=== PATIENT | female | born 1970 | race Caucasian/White ===

== ENCOUNTER 2016-11-24 12:40 | Emergency (ER) | payer SELFPAY ==
[~2016-11-24] VITALS: Ht 162.6 cm; Wt 68.0 kg
[2016-11-24 12:42] VITALS: BP 120/65; PULSE 109; RESP 20; TEMP 98.8; O2SAT 100
--- NOTE | 2016-11-24 12:58 | PD ---
HPI Chief Complaint: Abnormal Results Time Seen by Provider: 12:57 Travel History International Travel<30 days: No Contact w/Intl Traveler<30days: No Traveled to known affect area: No History of Present Illness HPI 46-year-old female with history of bipolar disorder, presents to the emergency department for evaluation of possible low hemoglobin. Patient states she is followed by Dr. Maurice Salas. She states she has been seeing him for intermittent episodes of dizziness ongoing for months, and scattered scabbed lesions on her scalp and extremities. He did lab work and called her to inform her that her hemoglobin was low and to come to the emergency department for reevaluation of this. Currently patient is having no symptoms. Denies any chest pain or tightness. No difficulty breathing. She is not lightheaded or having sensations of passing out. She has been having normal bowel movements. No black tarry stools.. She has no other symptoms to report. PFSH Past Medical History Bipolar Disorder: Yes ?: Not LMP: tubal Social History Alcohol Use: No Tobacco Use: Yes Substance Use: No Allergies-Medications (Allergen,Severity, Reaction): Coded Allergies: No Known Allergies (Unverified , 11/24/16) Reported Meds & Prescriptions Reported Meds & Active Scripts Active Reported Seroquel (Quetiapine Fumarate) 100 Mg Tab 100 Mg PO HS Wellbutrin SR 12 HR (Bupropion HCl) 150 Mg Tab 150 Mg PO DAILY Review of Systems Except as stated in HPI: all other systems reviewed are Neg Physical Exam Narrative GENERAL: Well-nourished female patient, ambulatory and in no acute distress SKIN: Focused skin assessment warm/dry. Scattered plaque like lesions on the extremities and scalp, varying in size. HEAD: Atraumatic. Normocephalic. EYES: Pupils equal and round. No scleral icterus. No injection or drainage. ENT: No nasal bleeding or discharge. Mucous membranes pink and moist. NECK: Trachea midline. No JVD. CARDIOVASCULAR: Tachycardic rate and rhythm. No murmur appreciated. RESPIRATORY: No accessory muscle use. Clear to auscultation. Breath sounds equal bilaterally. GASTROINTESTINAL: Abdomen soft, non-tender, nondistended. Hepatic and splenic margins not palpable. MUSCULOSKELETAL: No obvious deformities. No clubbing. No cyanosis. No edema. NEUROLOGICAL: Awake and alert. No obvious cranial nerve deficits. Motor grossly within normal limits. Normal speech. PSYCHIATRIC: Appropriate mood and affect; insight and judgment normal. Data Data Last Documented VS Vital Signs Date Time Temp Pulse Resp B/P Pulse Ox O2 Delivery O2 Flow Rate FiO2 11/24/16 14:49 99 18 120/75 99 11/24/16 13:36 Room Air 11/24/16 12:42 98.8 Orders Basic Metabolic Panel (Bmp) (11/24/16 12:56) Complete Blood Count With Diff (11/24/16 12:56) Prothrombin Time / Inr (Pt) (11/24/16 12:56) Act Partial Throm Time (Ptt) (11/24/16 12:56) Urinalysis - C+S If Indicated (11/24/16 12:56) Type And Screen (11/24/16 12:56) Ecg Monitoring (11/24/16 12:56) Iv Access Insert/Monitor (11/24/16 12:56) Oximetry (11/24/16 12:56) Orthostatic Vital Signs (11/24/16 14:03) Labs Laboratory Tests Test 11/24/16 13:31 White Blood Count 6.4 TH/MM3 Red Blood Count 4.65 MIL/MM3 Hemoglobin 8.6 GM/DL Hematocrit 28.4 % Mean Corpuscular Volume 61.0 FL Mean Corpuscular Hemoglobin 18.4 PG Mean Corpuscular Hemoglobin 30.2 % Concent Red Cell Distribution Width 18.2 % Platelet Count 259 TH/MM3 Mean Platelet Volume 8.7 FL Neutrophils (%) (Auto) 59.6 % Lymphocytes (%) (Auto) 24.8 % Monocytes (%) (Auto) 12.7 % Eosinophils (%) (Auto) 1.4 % Basophils (%) (Auto) 1.5 % Neutrophils # (Auto) 3.8 TH/MM3 Lymphocytes # (Auto) 1.6 TH/MM3 Monocytes # (Auto) 0.8 TH/MM3 Eosinophils # (Auto) 0.1 TH/MM3 Basophils # (Auto) 0.1 TH/MM3 CBC Comment DIFF FINAL Differential Comment Prothrombin Time 10.6 SEC Prothromb Time International 1.0 RATIO Ratio Activated Partial 25.8 SEC Thromboplast Time Urine Color YELLOW Urine Turbidity HAZY Urine pH 6.0 Urine Specific [place] 1.027 Urine Protein TRACE mg/dL Urine Glucose (UA) NEG mg/dL Urine Ketones NEG mg/dL Urine Occult Blood NEG Urine Nitrite NEG Urine Bilirubin NEG Urine Urobilinogen 2.0 MG/DL Urine Leukocyte Esterase TRACE Urine RBC LESS THAN 1 /hpf Urine WBC LESS THAN 1 /hpf Urine Squamous Epithelial 7 /hpf Cells Urine Transitional Epithelial <1 /hpf Cells Urine Bacteria RARE /hpf Urine Mucus FEW /lpf Microscopic Urinalysis Comment CULT NOT INDICATED Sodium Level 138 MEQ/L Potassium Level 3.7 MEQ/L Chloride Level 106 MEQ/L Carbon Dioxide Level 25.4 MEQ/L Anion Gap 7 MEQ/L Blood Urea Nitrogen 10 MG/DL Creatinine 0.75 MG/DL Estimat Glomerular Filtration 83 ML/MIN Rate Random Glucose 92 MG/DL Calcium Level 8.5 MG/DL Blood Type AB POSITIVE Antibody Screen NEGATIVE Blood Bank Comment [facility] Medical Decision Making Medical Screen Exam Complete: Yes Emergency Medical Condition: Yes Medical Record Reviewed: Yes Differential Diagnosis Anemia versus symptomatic anemia versus electrolyte abnormality versus vertigo versus syncope versus near-syncope Narrative Course 46-year-old female presents to department for evaluation. Patient appears without distress. Vital signs are stable. Laboratory Tests Test 11/24/16 13:31 White Blood Count 6.4 TH/MM3 Red Blood Count 4.65 MIL/MM3 Hemoglobin 8.6 GM/DL Hematocrit 28.4 % Mean Corpuscular Volume 61.0 FL Mean Corpuscular Hemoglobin 18.4 PG Mean Corpuscular Hemoglobin 30.2 % Concent Red Cell Distribution Width 18.2 % Platelet Count 259 TH/MM3 Mean Platelet Volume 8.7 FL Neutrophils (%) (Auto) 59.6 % Lymphocytes (%) (Auto) 24.8 % Monocytes (%) (Auto) 12.7 % Eosinophils (%) (Auto) 1.4 % Basophils (%) (Auto) 1.5 % Neutrophils # (Auto) 3.8 TH/MM3 Lymphocytes # (Auto) 1.6 TH/MM3 Monocytes # (Auto) 0.8 TH/MM3 Eosinophils # (Auto) 0.1 TH/MM3 Basophils # (Auto) 0.1 TH/MM3 CBC Comment DIFF FINAL Differential Comment Prothrombin Time 10.6 SEC Prothromb Time International 1.0 RATIO Ratio Activated Partial 25.8 SEC Thromboplast Time Urine Color YELLOW Urine Turbidity HAZY Urine pH 6.0 Urine Specific [place] 1.027 Urine Protein TRACE mg/dL Urine Glucose (UA) NEG mg/dL Urine Ketones NEG mg/dL Urine Occult Blood NEG Urine Nitrite NEG Urine Bilirubin NEG Urine Urobilinogen 2.0 MG/DL Urine Leukocyte Esterase TRACE Urine RBC LESS THAN 1 /hpf Urine WBC LESS THAN 1 /hpf Urine Squamous Epithelial 7 /hpf Cells Urine Transitional Epithelial <1 /hpf Cells Urine Bacteria RARE /hpf Urine Mucus FEW /lpf Microscopic Urinalysis Comment CULT NOT INDICATED Sodium Level 138 MEQ/L Potassium Level 3.7 MEQ/L Chloride Level 106 MEQ/L Carbon Dioxide Level 25.4 MEQ/L Anion Gap 7 MEQ/L Blood Urea Nitrogen 10 MG/DL Creatinine 0.75 MG/DL Estimat Glomerular Filtration 83 ML/MIN Rate Random Glucose 92 MG/DL Calcium Level 8.5 MG/DL Blood Type AB POSITIVE Antibody Screen NEGATIVE Blood Bank Comment Patient's hemoglobin is 8.6 with a microcytic anemia. Orthostatic vital signs are stable. Patient is currently follow-up with her primary care provider and seek hematology evaluation. She agrees to return immediately with any acute worsening symptoms. Diagnosis Primary Impression: Anemia Qualified Code: D64.9 - Anemia, unspecified type Referrals: Oncologist Primary Care Physician Patient Instructions: Anemia (ED), General Instructions Additional Instructions: Follow-up with her primary care provider Seek hematology evaluation [id number] iron supplements may be beneficial. Take them as prescribed. They will make her stool black Return immediately with any acute worsening symptoms Med/Other Pt SpecificInfo: No Change to Meds Disposition: 01 DISCHARGE HOME Condition: Stable PatelEmelia james WALKER Nov 24, 2016 12:58
[2016-11-24 13:00] VITALS: BP 114/65; PULSE 95; RESP 16; O2SAT 99
[2016-11-24] MEDS ORDERED: BUPR150CR PO (13:31)
[2016-11-24] MEDS ORDERED: SERO100T PO (13:31)
[2016-11-24 13:36] VITALS: O2SAT 100
[2016-11-24 13:46] LABS: AUTOMATED NEUTROPHIL # 3.8 TH/MM3 (1.8-7.7); BASOPHIL # 0.1 TH/MM3 (0-0.2); BASOPHIL % 1.5 % (0.0-2.0); EOSINOPHIL # 0.1 TH/MM3 (0-0.4); EOSINOPHIL % 1.4 % (0.0-4.0); HEMATOCRIT 28.4 % (35.0-46.0); HEMO FLAGS DIFF FINAL; LYMPH % 24.8 % (9.0-44.0); LYMPHOCYTE # 1.6 TH/MM3 (1.0-4.8); MEAN CORPUSCULAR HEMOGLOBIN 18.4 PG (27.0-34.0); MEAN CORPUSCULAR HGB CONC 30.2 % (32.0-36.0); MONO % 12.7 % (0.0-8.0); NEUT % 59.6 % (16.0-70.0); PLATELET COUNT 259 TH/MM3 (150-450); RED BLOOD COUNT 4.65 MIL/MM3 (4.00-5.30); RED CELL DISTRIBUTION WIDTH 18.2 % (11.6-17.2); WHITE BLOOD COUNT 6.4 TH/MM3 (4.0-11.0)
[2016-11-24 13:51] LABS: APTT (PATIENT) 25.8 SEC (24.3-30.1); PROTHROMBIN TIME - PATIENT 10.6 SEC (9.8-11.6)
[2016-11-24 13:53] LABS: BACTERIA, URINE RARE /hpf; BLOOD, URINE NEG (NEG); COMMENT (UR) CULT NOT INDICATED; CULTURE IF INDICATED CULT NOT INDICATED; GLUCOSE,URINE NEG (NEG); KETONE, URINE NEG (NEG); MUCUS URINE FEW /lpf (OCC); NITRITE,URINE NEG (NEG); SQUAMOUS EPITHELIAL CELL URINE 7 /hpf (0-5); TRANSITIONAL EPI CELLS, URINE <1 /hpf; URINE COLOR YELLOW (YELLW/STRAW)
[2016-11-24 13:58] LABS: BICARBONATE 25.4 MEQ/L (21.0-32.0); POTASSIUM 3.7 MEQ/L (3.5-5.1)
[2016-11-24 14:47] VITALS: BP_SYST 118; BP_SYST 120; BP_SYST 128; BP_DIAS 75; BP_DIAS 76; BP_DIAS 77; RESP 16; RESP 18
[2016-11-24 14:49] VITALS: BP 120/75
== END 2016-11-24 15:33 | disposition home or self-care (01) ==
LOC: NEPC 12:40
DX: D64.9 Anemia, unspecified (principal); D50.9 Iron deficiency anemia, unspecified; Z86.59 Personal history of other mental and behavioral disorders
CPT/HCPCS: 80048; 81001; 85025; 85610; 85730; 86850; 86900; 86901; 99283